=== PATIENT | female | born 1955 | race Caucasian/White ===

== ENCOUNTER 2017-02-06 10:25 | Outpatient (CLI) | payer OTHER ==
[2017-02-06 10:33] LABS: MEAN CORPUSCULAR HEMOGLOBIN 28.2 pg (28.0-34.0); MEAN CORPUSCULAR VOLUME 85.4 fl (80.0-100.0)
[2017-02-06 10:44] LABS: eGFR (African) > 60; eGFR (Non-African) > 60
== END 2017-02-06 10:26 ==
LOC: LABRHC 10:25
PROVIDERS: ATTEND Family Medicine
DX: E11.9 Type 2 diabetes mellitus without complications (principal); C50.911 Malignant neoplasm of unspecified site of right female breast
CPT/HCPCS: 80053; 83036; 85027